=== PATIENT | female | born 1970 | race Caucasian/White ===

== ENCOUNTER 2017-10-05 07:14 | Inpatient (IN) | payer OTHER ==
[2017-09-29 13:02] LABS: BASOPHILS % (AUTO) 0.4 % (0.0-2.0); HEMATOCRIT 38.8 % (36-46); HEMOGLOBIN 13.4 g/dL (12.0-16.0); LYMPHOCYTES # (AUTO) 2.3 K/uL (1.0-4.8); LYMPHOCYTES % (AUTO) 32.4 % (22.0-44.0); MEAN CORPUSCULAR HEMOGLOBIN 32.4 pg (26.0-34.0); MEAN CORPUSCULAR HGB CONC 34.5 G/dL (31.0-37.0); MEAN CORPUSCULAR VOLUME 94 fL (80-100); MONOCYTES # (AUTO) 0.6 K/uL (0.1-1.0); MONOCYTES % (AUTO) 7.7 % (2.0-9.0); NEUTROPHILS # (AUTO) 2.8 K/uL (1.8-7.7); NEUTROPHILS % (AUTO) 39.4 % (40.0-70.0); PLATELET COUNT (AUTO) 264 K/uL (150-450); RED BLOOD CELL COUNT(AUTO) 4.13 MIL/uL (4.00-5.20); RED CELL DISTRIBUTION WIDTH 12.9 % (11.5-14.5)
[2017-09-29 13:03] LABS: EOSINOPHILS % (AUTO) 20.1 % (1.0-6.0)
[2017-09-29 13:14] LABS: ANION GAP 5 mmol/L (8-16); CALCIUM, TOTAL 8.8 mg/dL (8.8-10.5); CARBON DIOXIDE 29 mmol/L (22-29); CHLORIDE 101 mmol/L (98-107); CREATININE 0.58 mg/dL (0.60-1.30); GLOMERULAR FILTR. RATE CALC > 60 mL/min (>60); GLUCOSE,RANDOM 99 mg/dL (70-110); POTASSIUM 3.9 mmol/L (3.5-5.1); SODIUM SERUM 135 mmol/L (136-145); UREA NITROGEN, BLOOD 13 mg/dL (7-18)
[~2017-10-05] VITALS: Ht 154.9 cm; Wt 62.7 kg
[~2017-10-05 07:14] MED LIST: RINGERS SOLUTION,LACTATED 1,000 ML IV ONE
[2017-10-05] MEDS ORDERED: RINGERS SOLUTION,LACTATED 1,000 ML IV ONE (07:33)
[2017-10-05] MEDS ORDERED: CeFAZolin 2 GM/DEXTROSE 50 ML IV ONE (07:45)
[2017-10-05] MEDS ORDERED: HYDR-3110 PO (08:01)
[2017-10-05] MEDS ORDERED: HYDR-309 PO (08:01)
[2017-10-05] MEDS ORDERED: DIGO-44 PO (08:01)
[2017-10-05] MEDS ORDERED: BUPIVACAINE HCL/PF 0.5% 30 ML VIAL ONE (09:13)
[2017-10-05] MEDS ORDERED: VANCOMYCIN HCL 1 GM/VIAL ONE (09:13)
[2017-10-05] MEDS ORDERED: ZOLPIDEM TARTRATE 10 MG TABLET PO PRN (09:30)
[2017-10-05] MEDS ORDERED: DiphenhydrAMINE HCL 50 MG/ML VIAL IVP PRN (09:30)
[2017-10-05] MEDS ORDERED: BENZOCAINE/MENTHOL LOZENGE [8 LOZENGES/PACKET] PO PRN (09:30)
[2017-10-05] MEDS ORDERED: ONDANSETRON HCL 4 MG/2 ML VIAL IVP PRN ×2 (09:30→10:15)
[2017-10-05] MEDS ORDERED: ACETAMINOPHEN 1000 MG/ISO-OSM 100 ML IV ONE (09:45)
[2017-10-05] MEDS ORDERED: MIDAZOLAM HCL 2 MG/2 ML VIAL IVP PRN (09:45)
[2017-10-05] MEDS ORDERED: HYDROmorphone 2 MG/ML SYRINGE IVP PRN ×3 (09:45)
[2017-10-05] MEDS ORDERED: NALOXONE HCL 0.4 MG/ML VIAL IVP PRN (09:45)
[2017-10-05] MEDS ORDERED: METOCLOPRAMIDE HCL 5 MG/ML 2 ML VIAL IVP PRN (09:45)
[2017-10-05] MEDS ORDERED: MORPHINE SULFATE 2 MG/ML SYRINGE IVP PRN (10:15)
[2017-10-05] MEDS ORDERED: CYCLOBENZAPRINE HCL 10 MG TABLET PO PRN (10:15)
[2017-10-05] MEDS ORDERED: ZOLPIDEM TARTRATE 5 MG TABLET PO PRN (10:15)
[2017-10-05 11:43] VITALS: BP 124/71
[2017-10-05 15:32] VITALS: BP 101/60
[2017-10-05] MEDS: ACETAMINOPHEN 1000 MG/ISO-OSM 100 ML IV SCH ×2 (15:49→21:41)
[2017-10-05] MEDS ORDERED: SODIUM CHLORIDE 0.9% 250 ML IV ONE (15:58)
[2017-10-05] MEDS ORDERED: MORPHINE SULFATE 4 MG/ML SYRINGE IVP PRN (17:30)
[2017-10-05] MEDS ORDERED: OXYGEN THERAPY IH SCH (20:00)
[2017-10-05 20:15] VITALS: BP 108/59
[2017-10-05 23:32] VITALS: BP 90/47
[2017-10-06] MEDS: ACETAMINOPHEN 1000 MG/ISO-OSM 100 ML IV SCH (04:02)
[2017-10-06 04:24] VITALS: BP 97/59
[2017-10-06] MEDS ORDERED: DEXAMETHASONE SOD PHOS 4 MG/ML VIAL IVP ONE (05:31)
[2017-10-06] MEDS ORDERED: EPHEDrine SULFATE 50 MG/ML VIAL IM ONE (05:31)
[2017-10-06] MEDS ORDERED: ONDANSETRON HCL 4 MG/2 ML VIAL IVP ONE (05:31)
[2017-10-06] MEDS ORDERED: ROCURONIUM BROMIDE 10 MG/ML 5 ML VIAL IVP ONE (05:31)
[2017-10-06] MEDS ORDERED: LIDOCAINE HCL/PF 2% 5 ML SYRINGE IVP ONE (05:31)
[2017-10-06] MEDS ORDERED: NEOSTIGMINE METHYLSULFATE 1 MG/ML 10 ML VIAL IVP ONE (05:31)
[2017-10-06] MEDS ORDERED: FentaNYL CITRATE-PF 100 MCG/2 ML VIAL IVP ONE (05:31)
[2017-10-06] MEDS ORDERED: PROPOFOL 1% 20 ML VIAL IVP ONE (05:31)
[2017-10-06] MEDS ORDERED: MIDAZOLAM HCL 2 MG/2 ML VIAL IVP ONE (05:31)
[2017-10-06] MEDS ORDERED: SUCCINYLCHOLINE CHLORIDE 20 MG/ML 10 ML VIAL IVP ONE (05:31)
[2017-10-06 07:27] VITALS: BP 97/55
[2017-10-06] MEDS: OxyCODONE HCL/ACETAMINOPHEN 10-325 MG TABLET PO PRN ×2 (11:25→15:52)
[2017-10-06 11:31] VITALS: BP 104/64
[2017-10-06 15:33] VITALS: BP 105/64
== END 2017-10-06 16:40 | disposition home or self-care (01) | DRG 517 ==
LOC: 4E 07:20
PROVIDERS: ADMIT Orthopaedic Surgery Orthopaedic Surgery of the Spine; ATTEND Orthopaedic Surgery Orthopaedic Surgery of the Spine
PROC: BR191ZZ Fluoroscopy of Lumbar Spine using Low Osmolar Contrast (ICD-10-PCS; 2017-10-05)
PROC: 01NB0ZZ Release Lumbar Nerve, Open Approach (ICD-10-PCS; principal; 2017-10-05 09:00)
DX: M48.061 Spinal stenosis, lumbar region without neurogenic claudication (principal); I10 Essential (primary) hypertension; V89.2XXA Person injured in unspecified motor-vehicle accident, traffic, initial encounter; Y93.89 Activity, other specified; Y92.488 Other paved roadways as the place of occurrence of the external cause; Y99.8 Other external cause status
CPT/HCPCS: 87081; 93005; 97161; 97165; J0131; J0330; J0690; J1100; J1200; J2250; J2270; J2405; J2704; J3010; J3370; J3490; J7050; J7120